=== PATIENT | female | born 2000 | race Caucasian/White ===

== ENCOUNTER 2022-02-25 19:03 | Emergency (ER) | payer BC ==
[2022-02-25 19:56] VITALS: BP 127/77; PULSE 105; RESP 16; TEMP 98.4
[2022-02-25 20:09] LABS: Appearance,Urine Cloudy (Clear); Bacteria,Urine Rare /hpf; Bilirubin,Urine Negative (Negative); Blood,Urine Large (Negative); Color,Urine Colorless; Glucose,Urine (UA) Negative (Negative); Hyaline Casts,Urine 1 /lpf (0-2); Ketones,Urine Negative (Negative); Leukocyte Esterase,Urine Large (Negative); Nitrite,Urine Negative (Negative); Protein,Urine Negative (Negative); RBC,Urine 1 /hpf (0-5); Specific Gravity,Urine 1.001 (1.001-1.035); Squamous Epithelial Cell,Urine 1 /hpf (0-4); Urobilinogen,Urine <2.0 mg/dL (<2.0); WBC,Urine 36 /hpf (0-5)
[2022-02-25] MEDS ORDERED: CEPHALEXIN 250 MG CAP PO STA (20:30)
[2022-02-25] MEDS ORDERED: PHENAZOPYRIDINE 100 MG TAB PO STA (20:32)
--- NOTE | 2022-02-25 20:36 | ED ---
Female Urogenital HPI - General Chief complaint: Urogenital Stated complaint: urogenital Time Seen by Provider: 02/25/22 20:25 Source: patient Mode of arrival: ambulatory Limitations: no limitations - History of Present Illness Initial comments: Patient is a 21-year-old female who presents with UTI symptoms. Patient states she finished Keflex prescription one week ago for UTI. States symptoms started again today. Reports burning with urination and blood in the urine. Also reports increased urinary frequency/urgency. Patient states this feels typical of urinary tract infection. She denies fever, chills abdominal pain, nausea, vomiting, vaginal discharge. Denies concern for sexually transmitted infections. Last Menstrual Period: 02/23/22 - Related Data Previous Rx's Medication Instructions Recorded Phenazopyridine HCl [Pyridium] 100 mg PO TID PRN #15 tab 02/25/22 Sulfamethox-Tmp 800-160Mg [Bactrim 1 tab PO Q12HR 5 Days #10 tab 02/25/22 DS 800-160 mg] Allergies Allergy/AdvReac Type Severity Reaction Status Date / Time No Known Allergies Allergy Verified 02/25/22 19:55 Review of Systems ROS Statement: Those systems with pertinent positive or pertinent negative responses have been documented in the HPI. ROS Other: All systems not noted in ROS Statement are negative. Past Medical History Additional Past Medical History / Comment(s): uti History of Any Multi-Drug Resistant Organisms: None Reported Past Surgical History: Tonsillectomy Additional Past Surgical History / Comment(s): ear tubes Past Psychological History: No Psychological Hx Reported Smoking Status: Current some day smoker Past Alcohol Use History: None Reported Past Drug Use History: Marijuana General Exam Limitations: no limitations General appearance: alert, in no apparent distress Head exam: Present: atraumatic, normocephalic, normal inspection Respiratory exam: Present: normal lung sounds bilaterally. Absent: respiratory distress, wheezes, rales, rhonchi, stridor Cardiovascular Exam: Present: regular rate, normal rhythm, normal heart sounds. Absent: systolic murmur, diastolic murmur, rubs, gallop, clicks GI/Abdominal exam: Present: soft, normal bowel sounds. Absent: distended, tenderness, guarding, rebound, rigid Back exam: Absent: CVA tenderness (R), CVA tenderness (L) Neurological exam: Present: alert, oriented X3, CN II-XII intact Psychiatric exam: Present: normal affect, normal mood Skin exam: Present: warm, dry, intact, normal color. Absent: rash Course Vital Signs 02/25/22 19:52 Temperature 98.4 F Pulse Rate 105 H Respiratory 16 Rate Blood Pressure 127/77 O2 Sat by Pulse 98 Oximetry Medical Decision Making - Medical Decision Making This is a 21-year-old female presenting with UTI symptoms. There is evidence for infection on urinalysis. Patient will be discharged with Bactrim and Pyridium. Dr. Garcia is my attending. - Lab Data Lab Results 02/25/22 02/25/22 Range/Units 20:04 20:04 Urine Color Colorless Urine Appearance Cloudy H (Clear) Urine pH 7.0 (5.0-8.0) Ur Specific [place] 1.001 (1.001-1.035) Urine Protein Negative (Negative) Urine Glucose (UA) Negative (Negative) Urine Ketones Negative (Negative) Urine Blood Large H (Negative) Urine Nitrite Negative (Negative) Urine Bilirubin Negative (Negative) Urine Urobilinogen <2.0 (<2.0) mg/dL Ur Leukocyte Esterase Large H (Negative) Urine RBC 1 (0-5) /hpf Urine WBC 36 H (0-5) /hpf Ur Squamous Epith Cells 1 (0-4) /hpf Urine Bacteria Rare H (None) /hpf Hyaline Casts 1 (0-2) /lpf Urine HCG, Qual Not Detected (Not Detectd) Disposition Clinical Impression: Urinary tract infection Disposition: HOME SELF-CARE Condition: Good Instructions (If sedation given, give patient instructions): Urinary Tract Infection in Women (ED) Additional Instructions: Medication as directed. Increase water intake. avoid caffeine which may worsen symptoms. Return to emergency department experience new, concerning, or worsening symptoms. Prescriptions: Sulfamethox-Tmp 800-160Mg [Bactrim DS 800-160 mg] 1 tab PO Q12HR 5 Days #10 tab Phenazopyridine HCl [Pyridium] 100 mg PO TID PRN #15 tab PRN Reason: Pain Is patient prescribed a controlled substance at d/c from ED?: No Referrals: None,Stated [Primary Care Provider] - 1-2 days
[2022-02-25] MEDS ORDERED: SULFAMETHOX-TMP 800-160MG 1 EACH TAB PO STA (20:42)
== END 2022-02-25 20:48 | disposition home or self-care (01) ==
LOC: EC 19:03
DX: N39.0 Urinary tract infection, site not specified (principal); F17.200 Nicotine dependence, unspecified, uncomplicated; F12.90 Cannabis use, unspecified, uncomplicated; Z79.899 Other long term (current) drug therapy
CPT/HCPCS: 81001; 81025; 87086; 99283

== ENCOUNTER → 2022-04-18 | Outpatient (CLI) | payer BC ==
--- NOTE | 2022-04-18 12:53 | CT ---
EXAMINATION TYPE: CT abdomen wo/w con, adrenal mass protocol DATE OF EXAM: 04/18/2022 COMPARISON: NONE HISTORY: 22-year-old female E27.40, Unspecified adrenocortical insufficiency TECHNIQUE: Contiguous axial scanning of the abdomen before and after administration of 100 ml Isovue 300 IV contrast. Long delayed scanning is also performed per adrenal mass protocol. Coronal/sagittal reconstructions performed. CT DLP: 1375 mGycm Automated exposure control for dose reduction was used. FINDINGS: Heart normal size with trace anterior basilar pericardial fluid. Strandy atelectasis is noted in the lower lungs. There may be a tiny hiatal hernia suggested. Liver enlarged measuring 19.5 cm. On noncontrast images, no significant fatty infiltration is evident . No focal liver lesion or biliary ductal dilatation. Portal venous system is patent. Gallbladder, kidneys, spleen, and pancreas within normal limits. The adrenal glands appear satisfactory. No adrenal nodule or abnormal thickening is seen. No dilated small bowel, free fluid, or free air. Some prominent fluid-filled small bowel loops in the left side of the abdomen are probably transient. No mesenteric or retroperitoneal lymphadenopathy. Segments of a normal appendix is seen. There is mild to moderate stool burden. No pericolonic inflamm atory change. Pelvis not imaged. No osseous destructive process. IMPRESSION: 1. NO ADRENAL NODULE OR ABNORMAL THICKENING SEEN. OVERALL APPEARANCE THE ADRENAL GLANDS IS UNREMARKAB LE. 2. NONSPECIFIC MILD HEPATOMEGALY AT 19.5 CM.
== END | disposition home or self-care (01) ==
LOC: RADCTMAIN 04-11 16:59
PROVIDERS: ATTEND Obstetrics & Gynecology
DX: R16.0 Hepatomegaly, not elsewhere classified (principal); N91.5 Oligomenorrhea, unspecified; E27.40 Unspecified adrenocortical insufficiency
CPT/HCPCS: 74170; Q9967